=== PATIENT | male | born 1930 | race Caucasian/White ===

== ENCOUNTER 2016-04-18 13:59 | Inpatient (IN) ==
[2016-04-18] MEDS ORDERED: IPRATROPIUM/ALBUTEROL 3 ML AMPUL.NEB NEB ONE ×2 (14:18→16:43)
--- NOTE | 2016-04-18 14:41 | Emergency Department Note ---
General Adult HPI - General Chief complaint: Shortness of Breath/Dyspnea Stated complaint: Back pain, low O2 sats Time Seen by Provider: 04/18/16 14:35 Source: EMS Mode of arrival: EMS Limitations: no limitations, language barrier - History of Present Illness HPI Narrative: This patient has following couple times today has low back pain and has had a cough recently. - Related Data Home Medications Medication Instructions Recorded Confirmed Acetaminophen [Tylenol] 650 mg PO Q4HP PRN 04/18/16 04/18/16 Lisinopril [Zestril] 10 mg PO DAILY 04/18/16 04/18/16 Oxybutynin Chloride [Ditropan] 5 mg PO BID 04/18/16 04/18/16 Allergies Allergy/AdvReac Type Severity Reaction Status Date / Time No Known Drug Allergies Allergy Verified 04/18/16 14:04 Review of Systems All systems ED: reviewed and negative except as stated. Past Medical History - Past Medical History Medical history: Reports: dementia, other (bladder problems) Surgical history ED: Reports: cataract, herniorrhaphy, orthopedic, other Psychiatric history: Reports: schizophrenia - Social History Alcohol use: Reports: None Physical Exam - General Limitations: no limitations, language barrier General appearance: alert - Head Head exam: atraumatic - Eye Eye exam: Present: normal appearance - ENT ENT exam: normal exam - Neck Neck exam: Present: normal inspection - Chest Chest inspection: Present: normal inspection - Respiratory Respiratory exam: Present: other (Rales right base) - Cardiovascular Cardiovascular exam: Present: regular rate, normal rhythm, normal heart sounds - Abdominal Exam Abdominal exam: Present: soft. Absent: distention, tenderness - Neurological Exam Neurological exam: Present: alert - Psychiatric Psychiatric exam: Present: normal affect - Skin Skin exam: Present: warm Course Vital Signs Temperature 99.6 F 04/18/16 14:00 Pulse Rate 109 H 04/18/16 14:00 Respiratory Rate 20 04/18/16 14:00 Blood Pressure 132/88 04/18/16 14:00 Pulse Oximetry (%) 90 04/18/16 14:00 Temperature 99.6 F 04/18/16 14:00 Pulse Rate 103 H 04/18/16 18:16 Respiratory Rate 33 H 04/18/16 18:16 Blood Pressure 98/62 04/18/16 18:16 Pulse Oximetry (%) 90 04/18/16 18:16 Medical Decision Making - Lab Data Lab results reviewed: Yes I reviewed the patient's lab results. Result diagrams: 04/18/16 14:21 04/18/16 14:21 Lab Results 04/18/16 04/18/16 04/18/16 Range/Units 14:21 14:21 14:35 WBC 14.8 H (4.5-11.0) K/mcL RBC 5.02 (4.50-5.90) M/mcL Hgb 14.9 (13.5-16.5) g/dL Hct 45.7 (41.0-55.0) % MCV 91.0 (80.0-100.0) fL MCH 29.7 (26.0-34.0) pg MCHC 32.6 (31.0-36.0) g/dL RDW 15.4 H (11.5-14.5) % Plt Count 272 (140-440) K/mcL MPV 7.5 (7.4-10.4) fL Gran % 91.1 H (38.0-78.0) % Lymph % (Auto) 1.5 L (15.5-49.0) % [place] % (Auto) 6.5 (1.0-9.0) % Eos % (Auto) 0.9 (0.0-7.0) % Baso % (Auto) 0 (0.0-2.0) % Gran # 13.4 H (1.8-8.0) K/mcL Lymph # 0.2 L (1.5-4.8) K/mcL [place] # 1.0 H (0.1-0.9) K/mcL Eos # 0.1 (0.0-0.7) K/mcL Baso # 0 (0.0-0.3) K/mcL VBG Lactic Acid 2.9 H (0.5-2.2) mmol/L Sodium 139 (133-145) mmol/L Potassium 5.0 (3.3-5.1) mmol/L Chloride 101 (96-108) mmol/L Carbon Dioxide 22 (22-30) mmol/L Anion Gap 16.0 (8-16) BUN 25 H (8-23) mg/dl Creatinine 1.3 H (0.7-1.2) mg/dl GFR Calculation 49 Glucose 193 H (70-105) mg/dL Calcium 8.9 (8.6-10.4) mg/dl Total Bilirubin 0.8 (0.0-1.0) mg/dL AST 22 (0-37) U/l ALT 21 (0-40) U/l Alkaline Phosphatase 154 H (39-117) U/L Total Protein 7.1 (5.9-8.4) gm/dL Albumin 3.8 (3.2-5.2) gm/dL Globulin 3.3 (2.2-3.7) gm/dL Albumin/Globulin Ratio 1.2 (1.0-2.3) Urine Color Urine Appearance Urine pH (5.0-9.0) Ur Specific [place] (1.000-1.035) Urine Protein (NEG) mg/dL Urine Glucose (UA) (NEG) mg/dL Urine Ketones (NEG) mg/dL Urine Occult Blood (<0.03) mg/dL Urine Nitrate (NEG) Urine Bilirubin (NEG) mg/dL Urine Urobilinogen (NEG) mg/dL Ur Leukocyte Esterase (NEG) /uL Ur Culture Indicated? 04/18/16 Range/Units 17:15 WBC (4.5-11.0) K/mcL RBC (4.50-5.90) M/mcL Hgb (13.5-16.5) g/dL Hct (41.0-55.0) % MCV (80.0-100.0) fL MCH (26.0-34.0) pg MCHC (31.0-36.0) g/dL RDW (11.5-14.5) % Plt Count (140-440) K/mcL MPV (7.4-10.4) fL Gran % (38.0-78.0) % Lymph % (Auto) (15.5-49.0) % [place] % (Auto) (1.0-9.0) % Eos % (Auto) (0.0-7.0) % Baso % (Auto) (0.0-2.0) % Gran # (1.8-8.0) K/mcL Lymph # (1.5-4.8) K/mcL [place] # (0.1-0.9) K/mcL Eos # (0.0-0.7) K/mcL Baso # (0.0-0.3) K/mcL VBG Lactic Acid (0.5-2.2) mmol/L Sodium (133-145) mmol/L Potassium (3.3-5.1) mmol/L Chloride (96-108) mmol/L Carbon Dioxide (22-30) mmol/L Anion Gap (8-16) BUN (8-23) mg/dl Creatinine (0.7-1.2) mg/dl GFR Calculation Glucose (70-105) mg/dL Calcium (8.6-10.4) mg/dl Total Bilirubin (0.0-1.0) mg/dL AST (0-37) U/l ALT (0-40) U/l Alkaline Phosphatase (39-117) U/L Total Protein (5.9-8.4) gm/dL Albumin (3.2-5.2) gm/dL Globulin (2.2-3.7) gm/dL Albumin/Globulin Ratio (1.0-2.3) Urine Color Yellow Urine Appearance Clear Urine pH 5.0 (5.0-9.0) Ur Specific [place] 1.017 (1.000-1.035) Urine Protein Neg (NEG) mg/dL Urine Glucose (UA) Negative (NEG) mg/dL Urine Ketones 5/tr A (NEG) mg/dL Urine Occult Blood Neg (<0.03) mg/dL Urine Nitrate Neg (NEG) Urine Bilirubin Neg (NEG) mg/dL Urine Urobilinogen Neg (NEG) mg/dL Ur Leukocyte Esterase Neg (NEG) /uL Ur Culture Indicated? No - Radiology Data Radiology results reviewed: Yes I reviewed the patient's radiology results. ( chest x-ray bilateral pneumonia) Disposition Clinical Impression: Community acquired pneumonia Disposition: Xfer As Inpt ([facility]) Condition: Good Referrals: Valente Wen DO [Primary Care Provider] - Time of Disposition: 18:27
[2016-04-18] MEDS ORDERED: LEVOFLOXACIN 500 MG/100 ML BAG IV ONE (14:42)
[2016-04-18 14:56] LABS: Basophils # (Auto) 0 K/mcL (0.0-0.3); Basophils % (Auto) 0 % (0.0-2.0); Eosinophils # (Auto) 0.1 K/mcL (0.0-0.7); Eosinophils % (Auto) 0.9 % (0.0-7.0); Granulocytes % (Auto) 91.1 % (38.0-78.0); Lymphocytes # (Auto) 0.2 K/mcL (1.5-4.8); Lymphocytes % (Auto) 1.5 % (15.5-49.0); Mean Corpuscular HGB Conc 32.6 g/dL (31.0-36.0); Mean Corpuscular Hemoglobin 29.7 pg (26.0-34.0); Monocytes % (Auto) 6.5 % (1.0-9.0); Platelet Count 272 K/mcL (140-440); RBC 5.02 M/mcL (4.50-5.90); Red Cell Distribution Width 15.4 % (11.5-14.5)
--- NOTE | 2016-04-18 14:56 | XRay Report ---
HISTORY: Reason for Exam:SOB FINDINGS: There are bilateral alveolar infiltrates. The greatest consolidation is located medially in the right upper lobe. There is milder involvement in both lower lobes. These are new finding since 02/21/13. No pleural effusion is detected. The heart size is upper limits of normal. The aorta is tortuous. Underlying adenopathy cannot be excluded. 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 IMPRESSION: Moderate bilateral pneumonia with the greatest involvement in the right upper lobe Interpreted and Authenticated by: Lalo Nichols 04/18/16
[2016-04-18 15:11] LABS: ALT/SGPT 21 U/l (0-40); Albumin 3.8 gm/dL (3.2-5.2); Albumin/Globulin Ratio 1.2 (1.0-2.3); Alkaline Phosphatase 154 U/L (39-117); Blood Urea Nitrogen 25 mg/dl (8-23)
[2016-04-18] MEDS ORDERED: ONDANSETRON 4 MG/2 ML VIAL IV ONE (15:24)
[2016-04-18 18:01] LABS: Appearance,Urine CLEAR; Bilirubin,Urine NEG (NEG); Color,Urine YELLOW; Glucose,Urine (UA) NEGATIVE (NEG); Leukocyte Esterase,Urine NEG /uL (NEG); Nitrate,Urine NEG (NEG); Protein,Urine NEG (NEG); Specific Gravity,Urine 1.017 (1.000-1.035); Urine Blood NEG mg/dL (<0.03); Urobilinogen,Urine NEG (NEG)
[2016-04-18] MEDS ORDERED: cefTRIAXone 1 GM in DEXTROSE 5% IN WATER 50 ML IV ONE (18:26)
--- NOTE | 2016-04-18 18:32 | XRay Report ---
HISTORY: Reason for Exam:trauma fell twice today and status post recent kyphoplasty FINDINGS: There is a mild biconcave anterior wedge compression fracture at L1. There is cement within this vertebra. There has been no further loss in height of this vertebra compared with the preoperative x-ray done on 01/09/16. No new fracture has developed. There is arthritis with small anterior spurs throughout the thoracic and lumbar spine. The largest spurs are at L5-S1. IMPRESSION: No new fracture Interpreted and Authenticated by: Lalo Nichols 04/18/16
[2016-04-18] MEDS ORDERED: BISACODYL 10 MG SUPP.RECT PR PRN ×2 (19:51→20:47)
[2016-04-18] MEDS ORDERED: FLEETS ADULT ENEMA PR PRN ×2 (19:51→20:47)
[2016-04-18] MEDS ORDERED: LORazepam 2 MG/ML VIAL IV PRN (19:51)
[2016-04-18] MEDS ORDERED: MAGNESIUM HYDROXIDE 30 ML ORAL.SUSP PO PRN ×2 (19:51→20:47)
[2016-04-18] MEDS ORDERED: VANCOMYCIN PER PHARMACY IV ONE ×2 (19:57→20:47)
[2016-04-18] MEDS ORDERED: VANCOMYCIN 1,500 MG in 0.9 % SODIUM CHLORIDE 500 ML IV ONE ×2 (19:57→20:47)
[2016-04-18] MEDS ORDERED: HALOPERIDOL LACTATE 5 MG/ML VIAL IV PRN ×2 (19:59→20:47)
[2016-04-18] MEDS ORDERED: DEXTROSE 5%-1/2NS 1,000 ML IV SCH ×2 (20:00→20:47)
--- NOTE | 2016-04-18 20:06 | Internal Med History&Physical ---
Medical - H&P: [facility] Patient information: Note initiated : 04/18/16 at 8:01 pm Service Date, if different from initiated Date: [] Patient: Derek Nuñez a 85 y/o M admitted on for Back Pain, Low O2 Sats. Chief Complaint: [] History of present illness: Mr. Nuñez is a 85 year old male with h/o dementia, scizhophrenia, HTN urinary incontinence. Presents to the ER from [facility] after falling x 2 The EMS was called to take patient to the ER for eval. On arrival the EMS noted that the patient was hypoxic and throught the way to the hosptial they found it difficult to maintain oxygen saturations. the patient was evaluated in the ER ,and was noted to have bilateral Pneumonia predominantly involving the right lobe. His lactate was elevated to 2.9, wbc elevated from baseline, and creat upto 1.3, he was needing 10L oxygen via mask to maintain oxygen status, which improved after giving duonebs. The patient did not provide any history due to mental status and hard of hearing. The paper work from the [facility] shows DNR status, I called the patients POA Ramu Farmer on [phone] and confirmed the DNR Status. I also updated him on the patients condition, explaining the severity of the illness and that he may not survive this admission if the infection does not turn around quickly. In the ER he has received soem fluids, IV levaquin and IV rocephin. I have added IV zosyn and Vancomycin and continued levaquin for hcap pna treatment. ROS unobtainable: due to mental status Medical - H&P: PMH Medical history: h/o HTN, Dementia, schizophrenia, urinary incontinence, chr back pain due to lumbar fracture. gait disturbance. Surgical history: not avaialble. Pertinent family history: no family history obtainable. Social history: lives in [facility]. Medical - H&P: Meds Home Medications Medication Instructions Recorded Confirmed Type Acetaminophen [Tylenol] 650 mg PO Q4HP PRN 04/18/16 04/18/16 History Lisinopril [Zestril] 10 mg PO DAILY 04/18/16 04/18/16 History Oxybutynin Chloride [Ditropan] 5 mg PO BID 04/18/16 04/18/16 History Allergies Allergy/AdvReac Type Severity Reaction Status Date / Time No Known Drug Allergies Allergy Verified 04/18/16 14:04 Medical - H&P: Exam - Constitutional Vitals: Temp Pulse Resp BP Pulse Ox 99.6 F 95 H 33 H 117/75 92 04/18/16 14:00 04/18/16 19:27 04/18/16 18:16 04/18/16 19:27 04/18/16 19:27 General appearance: moderate distress - Head Head exam: Present: atraumatic - Respiratory Additional comments: Air entry equal on both sides, flower basilar crackles mild no wheezing apparent. patient tachypenic, non cooperative with the exam. - Cardiovascular Additional comments: non cooperative with exam no gross murmurs heard. - GI/Abdominal Additional comments: non cooperative with exam - Neurological Exam Additional comments: awake, did not follow my commands. was trying to go back to sleep. Medical - H&P: Reslt - Labs CBC & Chem 7: 04/18/16 14:21 04/18/16 14:21 Labs: Short CBC 04/18/16 Range/Units 14:21 WBC 14.8 H (4.5-11.0) K/mcL Hgb 14.9 (13.5-16.5) g/dL Hct 45.7 (41.0-55.0) % Plt Count 272 (140-440) K/mcL BMP 04/18/16 14:21 Sodium 139 Potassium 5.0 Chloride 101 Carbon Dioxide 22 BUN 25 H Creatinine 1.3 H Glucose 193 H Calcium 8.9 Liver Function 04/18/16 Range/Units 14:21 Total Bilirubin 0.8 (0.0-1.0) mg/dL AST 22 (0-37) U/l ALT 21 (0-40) U/l Alkaline Phosphatase 154 H (39-117) U/L Albumin 3.8 (3.2-5.2) gm/dL Urine 04/18/16 Range/Units 17:15 Urine Color Yellow Urine Appearance Clear Urine pH 5.0 (5.0-9.0) Ur Specific [place] 1.017 (1.000-1.035) Urine Protein Neg (NEG) mg/dL Urine Glucose (UA) Negative (NEG) mg/dL Medical - H&P: A/P (1) HCAP (healthcare-associated pneumonia) Current visit: Yes Status: Acute NH Resident Treat with levaquin, zosyn and vancomycin. poor prognosis, (2) Severe sepsis Current visit: Yes Status: Acute Elevated lactate, wbc, tachypnea, hypoxia, worsening renal function borderline HTN. Patient not a good candiate for very aggresive fluid management given that he is DNR status, will try to provide hydration to avoid hypotension, GIven his non compliance it will be difficult even to place a central line as he is not cooperative. Giving excessive sedation can risk worsening respiratory and cardiac status. for now will work with peripheral access, POA aware of poor prognosis. (3) Dementia Current visit: Yes Status: Acute high risk of delirum ok to use low dose haldol to prevent aggressive behaviour and prevent removal of lines. no benzo due to tenous cardio resp status. (4) Acute respiratory failure with hypoxia Current visit: Yes Status: Acute presnetly on oxymask 10 L try to keep oxygen sat > 90
[2016-04-18] MEDS ORDERED: VANCOMYCIN 500 MG in 0.9 % SODIUM CHLORIDE 100 ML IV ONE (20:15)
[2016-04-18] MEDS ORDERED: LEVOFLOXACIN 250 MG/50 ML BAG IV ONE (20:15)
[2016-04-18] MEDS ORDERED: HEPARIN 5,000 UNIT/ML VIAL SQ SCH (21:00)
[2016-04-18] MEDS ORDERED: 0.9 % SODIUM CHLORIDE 10 ML SYRINGE IV SCH (22:00)
[2016-04-18] MEDS ORDERED: VANCOMYCIN 500 MG VIAL ONE (22:13)
[2016-04-18] MEDS: 0.9 % SODIUM CHLORIDE 10 ML SYRINGE IV SCH (22:16)
[2016-04-18] MEDS: IPRATROPIUM/ALBUTEROL 3 ML AMPUL.NEB NEB SCH (22:49)
[2016-04-18] MEDS ORDERED: IPRATROPIUM/ALBUTEROL 3 ML AMPUL.NEB NEB SCH (23:00)
[2016-04-18] MEDS: HEPARIN 5,000 UNIT/ML VIAL SQ SCH (23:43)
[2016-04-19] MEDS ORDERED: PIPERACILLIN SODIUM/TAZOBACTAM 3.375 GM in DEXTROSE 5% IN WATER 50 ML IV SCH
[2016-04-19] MEDS: PIPERACILLIN SODIUM/TAZOBACTAM 3.375 GM in DEXTROSE 5% IN WATER 50 ML IV SCH ×4 (00:45→17:50)
[2016-04-19] MEDS ORDERED: PIPERACILLIN SODIUM/TAZOBACTAM 3.375 GM VIAL IV ONE ×2 (00:45→06:08)
[2016-04-19] MEDS: IPRATROPIUM/ALBUTEROL 3 ML AMPUL.NEB NEB SCH ×6 (03:06→23:14)
[2016-04-19] MEDS: 0.9 % SODIUM CHLORIDE 10 ML SYRINGE IV SCH ×3 (06:13→21:15)
[2016-04-19] MEDS ORDERED: DEXTROSE 5%-1/2NS 1,000 ML IV SCH (07:15)
[2016-04-19 07:38] LABS: Mean Cell Volume 90.2 fL (80.0-100.0); Mean Corpuscular HGB Conc 32.7 g/dL (31.0-36.0); Mean Corpuscular Hemoglobin 29.5 pg (26.0-34.0); Platelet Count 192 K/mcL (140-440); RBC 4.51 M/mcL (4.50-5.90)
[2016-04-19 08:42] LABS: Band Neutrophils % 1 % (0-10); Eosinophils % (Manual) 2 % (0-7); Lymphocytes % 2 % (15-49); Monocytes % (Manual) 9 % (1-9); Platelet Estimate NORMAL (NORMAL); RBC Morphology NORMAL (NORMAL); Segmented Neutrophils % 86 % (38-78)
[2016-04-19] MEDS: ACETAMINOPHEN 325 MG TABLET PO PRN ×2 (08:50→13:40)
[2016-04-19] MEDS: HEPARIN 5,000 UNIT/ML VIAL SQ SCH ×2 (08:51→21:30)
[2016-04-19 09:19] LABS: ALT/SGPT 17 U/l (0-40); Albumin 3.1 gm/dL (3.2-5.2); Albumin/Globulin Ratio 0.9 (1.0-2.3); Alkaline Phosphatase 117 U/L (39-117); Bilirubin,Direct < 0.2 mg/dL (0.0-0.3); Blood Urea Nitrogen 23 mg/dl (8-23); Gamma Glutamyl Transpeptidase 27 U/L (8-61); Magnesium 1.9 mg/dL (1.6-2.5); Phosphorous 3.1 mg/dL (2.7-4.5); Uric Acid 4.7 mg/dL (2.5-8.0)
[2016-04-19] MEDS ORDERED: 0.9 % SODIUM CHLORIDE 500 ML IV ONE ×3 (12:39→22:53)
[2016-04-19] MEDS: DEXTROSE 5%-1/2NS 1,000 ML IV SCH ×2 (13:39→22:03)
[2016-04-19] MEDS ORDERED: VANCOMYCIN 1,000 MG in 0.9 % SODIUM CHLORIDE 250 ML IV SCH (14:00)
--- NOTE | 2016-04-19 14:43 | Internal Med Progress Note ---
Medical - PN: Subj Patient information: Note initiated : 04/19/16 at 2:40 pm Service Date, if different from initiated Date: [] Patient: Derek Nuñez 85 y/o M admitted on 04/18/16 for Back Pain, Low O2 Sats/Pneumonia, Sepsis. Chief Complaint: [] Interval history: The patient seen examined in PCU the patient this AM was doing better, he did not have any new complaints, but is a poor communicator due to his mental status. Overnight events noted. He has complained about pain and he seems to be less agitated when given tylenol. I will add low dose hydrocodone to his regime to see if this helps to keep him comfortable. his breathing seems better, he is still tachypenic, and but is able to maintain his oxygenation well, his bp is stable, HR is stable, he has been febrile Cultures so far have been negative. ROS not obtainable due to poor mental condition. - Constitutional Vitals: Vital Signs Temp Pulse Resp BP Pulse Ox 99.6 F 77 34 H 111/67 98 04/19/16 14:00 04/19/16 11:17 04/19/16 14:00 04/19/16 14:00 04/19/16 14:00 Period Temp Pulse Resp BP Sys/Griffith Pulse Ox Last 24 Hr 99.6 F-100.4 F 73-90 18-41 98-131/59-86 89-98 Intake and Output 04/19/16 04/19/16 04/19/16 05:59 13:59 21:59 Intake Total 100 / 100 1981 168 / 168 Output Total 492 / 492 180 / 180 Balance -392 / -392 1801 / 1802 148 / 148 Weight 151 lb 6.4 oz 151 lb 6.4 oz Patient Weight 04/20/16 05:59 Weight 151 lb 6.4 oz Intake & Output: Intake & Output 04/19/16 04/19/16 04/19/16 05:59 13:59 21:59 Intake Total 100 / 100 1981 168 / 168 Output Total 492 / 492 180 / 180 Balance -392 / -392 180 / 1802 148 / 148 Weight 151 lb 6.4 oz 151 lb 6.4 oz Intake: IV 100 / 100 1762 / 1762 48 / 48 Sodium Chloride 0.9% 500 500 / 500 ml @ Wide Open IV [facility] Rx#:[id number] Dextrose 5%-1/2Ns IV 1162 / 1162 48 / 48 Solution 1,000 ml @ 100 mls/hr IV .Q10H [facility] Rx#: [id number] Dextrose 5% in Water 50 50 / 50 100 / 100 ml @ 100 mls/hr IV Q6H [facility] with Zosyn 3.375 gm Rx#:[id number] Oral 220 / 220 120 / 120 Output: Urine Catheter Amount 492 / 492 180 / 180 20 / 20 Other: Meal Breakfast Lunch Percent of Meal Consumed 100% 25% Feeding Ability Assist with Tray Set Up Assist with Tray Set Up - Head Head exam: Present: atraumatic, normal inspection - Eye Eye exam: Absent: conjunctival injection, scleral icterus - Respiratory Respiratory exam: Absent: respiratory distress, wheezes Additional comments: Right mid and lower lobe crackles, no active wheezing patient tachypenic, but RR improves when he is resting. - Cardiovascular Cardiovascular exam: Present: normal rate and rhythm, +S1, +S2 - GI/Abdominal GI/Abdominal exam: Present: normal bowel sounds, soft. Absent: guarding, hernia , rigid, tenderness - Extremities Exam Extremities exam: Present: Foot pink and warm. Absent: pedal edema - Neurological Exam Additional comments: can be easily aroused follows commands moving all extremities Hard of hearing hence not able to comphrehend much, also has h/o dementia - Psychiatric Additional comments: Intermittently agitated, but overall has been cam and redirectable. - Skin Skin exam: Absent: rash, urticaria Medical - PN: Obj Da - Labs CBC & Chem 7: 04/19/16 06:10 04/19/16 06:10 Labs: Abnormal Lab Results 04/19/16 04/19/16 06:10 06:10 Hgb 13.3 L Hct 40.7 L RDW 15.0 H Seg Neutrophils % 86 H Lymphocytes % 2 L Potassium 5.2 H Carbon Dioxide 20 L Anion Gap 17.0 H Creatinine 1.3 H Glucose 144 H Calcium 8.2 L Lactate Dehydrogenase 504 H Albumin 3.1 L Albumin/Globulin Ratio 0.9 L Meds: Medications Acetaminophen (Tylenol) 650 mg PO Q4-6HP PRN PRN Reason: PAIN/FEVER > 101 Last Admin: 04/19/16 13:40 Dose: 650 mg Acetaminophen/Hydrocodone Bitart ([place] 5/325mg) 1 tab PO Q4-6HP PRN PRN Reason: Pain Albuterol/Ipratropium (Duoneb) 3 ml NEB Q4HRT [facility] Last Admin: 04/19/16 10:59 Dose: 3 ml Bisacodyl (Dulcolax) 10 mg AK Q2-3DAYS PRN PRN Reason: Constipation Haloperidol Lactate (Haldol) 2 mg IV Q4HP PRN PRN Reason: ANXIETY/SEDATION Heparin Sodium (Porcine) (Heparin) 5,000 unit SQ Q12 [facility] Last Admin: 04/19/16 08:51 Dose: 5,000 unit Levofloxacin (Levaquin) 750 mg in 150 mls @ 150 mls/hr IV Q48H [facility] Vancomycin HCl 1,500 mg/ (Sodium Chloride) 500 mls @ 333.3 mls/hr IV DAILY [facility] Piperacillin Sod/Tazobactam (Sod 3.375 gm/ Dextrose) 50 mls @ 100 mls/hr IV Q6H [facility] Last Infusion: 04/19/16 12:40 Dose: Infused Vancomycin HCl 1,000 mg/ (Sodium Chloride) 250 mls @ 250 mls/hr IV 1400 [facility] Stop: 04/19/16 14:59 Last Admin: 04/19/16 14:09 Dose: 250 mls/hr Dextrose/Sodium Chloride (Dextrose 5%-1/2ns Iv Solution) 1,000 mls @ 100 mls/ hr IV .Q10H [facility] Last Infusion: 04/19/16 14:08 Dose: 0 mls/hr Magnesium Hydroxide (Milk Of Magnesia) 30 ml PO DAILYP PRN PRN Reason: Constipation Sodium Biphosphate/Sodium Phosphate (Fleets Adult) 1 dose AK Q3-4DAYS PRN PRN Reason: Constipation Sodium Chloride (Saline Flush) 10 ml IV Q8 [facility] Last Admin: 04/19/16 14:10 Dose: Not Given Medical - PN: A/P - Time Spent With Patient Total time spent is greater than 50% in coordination of care (as documented) at patient's floor/unit and/or counseling patient: (1) HCAP (healthcare-associated pneumonia) Status: Acute Assessment and plan: The patient is still requiring oxygen On IV levaquin, Zosyn and vancomycin continue same for now. tachpenic still but has stable oxygen requirements. Current Visit: Yes (2) Severe sepsis Status: Acute Assessment and plan: WBC count improving, patient still febrile BP still labile, but improving with single 500cc bolus, patient is on maintaince IV fluids at 100cc/ hr Given oxygen requirements and stable BP, DNR status, aggresive fluid resusitation was not performed He does not seem a candidate who will tolerate bipap. overall however the sepsis seems to be improving. Current Visit: Yes (3) Dementia Status: Acute Assessment and plan: high risk for delirum stable at this time prn haldol ordered Current Visit: Yes (4) Acute respiratory failure with hypoxia Status: Acute Assessment and plan: on oxygen, continue same for now. Current Visit: Yes Medical - PN: Qual - VTE Deep Vein Thrombosis/Pulmonary Embolism Present on Admission: No
[2016-04-19] MEDS ORDERED: LEVOFLOXACIN 750 MG/150 ML BAG IV SCH (20:00)
[2016-04-20] MEDS: PIPERACILLIN SODIUM/TAZOBACTAM 3.375 GM in DEXTROSE 5% IN WATER 50 ML IV SCH ×4 (00:23→17:23)
[2016-04-20] MEDS ORDERED: 0.9 % SODIUM CHLORIDE 500 ML IV ONE (01:20)
[2016-04-20] MEDS: IPRATROPIUM/ALBUTEROL 3 ML AMPUL.NEB NEB SCH ×7 (02:10→22:58)
[2016-04-20] MEDS: HYDROcodone/APAP 5/325MG TABLET PO PRN ×4 (02:10→23:59)
[2016-04-20] MEDS: DEXTROSE 5%-1/2NS 1,000 ML IV SCH ×3 (04:41→14:30)
[2016-04-20] MEDS: 0.9 % SODIUM CHLORIDE 10 ML SYRINGE IV SCH ×3 (05:24→21:49)
[2016-04-20 06:00] LABS: Basophils # (Auto) 0 K/mcL (0.0-0.3); Basophils % (Auto) 0.3 % (0.0-2.0); Eosinophils # (Auto) 0.3 K/mcL (0.0-0.7); Eosinophils % (Auto) 3.6 % (0.0-7.0); Granulocytes % (Auto) 79.8 % (38.0-78.0); Lymphocytes # (Auto) 0.5 K/mcL (1.5-4.8); Mean Cell Volume 91.7 fL (80.0-100.0); Mean Corpuscular Hemoglobin 30.2 pg (26.0-34.0); Monocytes # (Auto) 0.8 K/mcL (0.1-0.9); Monocytes % (Auto) 10.3 % (1.0-9.0); Platelet Count 160 K/mcL (140-440); RBC 3.86 M/mcL (4.50-5.90); Red Cell Distribution Width 15.6 % (11.5-14.5)
[2016-04-20 06:24] LABS: ALT/SGPT 14 U/l (0-40); Albumin 2.8 gm/dL (3.2-5.2); Albumin/Globulin Ratio 1.2 (1.0-2.3); Alkaline Phosphatase 105 U/L (39-117); Bilirubin,Direct < 0.2 mg/dL (0.0-0.3); Blood Urea Nitrogen 23 mg/dl (8-23); Gamma Glutamyl Transpeptidase 31 U/L (8-61); Magnesium 1.7 mg/dL (1.6-2.5); Phosphorous 2.4 mg/dL (2.7-4.5); Uric Acid 3.1 mg/dL (2.5-8.0)
[2016-04-20] MEDS ORDERED: VANCOMYCIN 1,500 MG in 0.9 % SODIUM CHLORIDE 500 ML IV SCH (09:00)
[2016-04-20] MEDS: HEPARIN 5,000 UNIT/ML VIAL SQ SCH (09:43)
[2016-04-20] MEDS ORDERED: LEVOFLOXACIN 750 MG/150 ML BAG IV SCH ×2 (10:00→12:00)
[2016-04-20] MEDS ORDERED: HALOPERIDOL LACTATE 5 MG/ML VIAL IV PRN (10:54)
[2016-04-20] MEDS ORDERED: ACETAMINOPHEN 325 MG TABLET PO PRN (10:54)
[2016-04-20] MEDS ORDERED: BISACODYL 10 MG SUPP.RECT PR PRN (10:54)
[2016-04-20] MEDS ORDERED: FLEETS ADULT ENEMA PR PRN (10:54)
--- NOTE | 2016-04-20 15:27 | Internal Med Progress Note ---
Medical - PN: Subj Patient information: Note initiated : 04/20/16 at 3:25 pm Service Date, if different from initiated Date: [] Patient: Derek Nuñez 85 y/o M admitted on 04/18/16 for Back Pain, Low O2 Sats/Pneumonia, Sepsis. Chief Complaint: [] Interval history: The patient seen examined, no acute events noted The patietn had low urine output overnight, which responded to fluid boluses. he is othwerwise stable, and improving. but his progonisis is still guarded. he is able to maintain oxygenation on 2 L at this time, still tachypenic Able to tolerate po well his blood pressure has remained stable Unable to communicate very well with the patient due to his mental condition and poor hearing, - Constitutional Vitals: Vital Signs Temp Pulse Resp BP Pulse Ox 98.8 F 80 24 94/66 96 04/20/16 12:00 04/20/16 14:48 04/20/16 14:48 04/20/16 12:00 04/20/16 12:00 Period Temp Pulse Resp BP Sys/Griffith Pulse Ox Last 24 Hr 98.8 F-100.5 F 60-92 20-42 94-129/49-71 91-99 Intake and Output 04/20/16 04/20/16 04/20/16 05:59 13:59 21:59 Intake Total 2414 / 2414 1812 / 1812 Output Total 216 / 216 350 / 350 Balance 2198 / 2198 1462 / 1462 Intake & Output: Intake & Output 04/20/16 04/20/16 04/20/16 05:59 13:59 21:59 Intake Total 2414 / 2414 1812 / 1812 Output Total 216 / 216 350 / 350 Balance 2198 / 2198 1462 / 1462 Intake: IV 2294 / 2294 1072 / 1072 Sodium Chloride 0.9% 500 1500 / 1500 ml @ Wide Open IV BOLUS ONE Rx#:[id number] Dextrose 5%-1/2Ns IV 694 / 694 522 / 522 Solution 1,000 ml @ 100 mls/hr IV .Q10H [facility] Rx#: [id number] Dextrose 5% in Water 50 100 / 100 50 / 50 ml @ 100 mls/hr IV Q6 [facility] with Zosyn 3.375 gm Rx#: [id number] Sodium Chloride 0.9% 500 500 / 500 ml @ 333.3 mls/hr IV DAILY [facility] with Vancomycin 1,500 mg Rx#:[id number] Oral 120 / 120 740 / 740 Output: Urine Catheter Amount 216 / 216 350 / 350 Other: Meal Nourishment/Supplement Lunch Percent of Meal Consumed 50% 50% Feeding Ability Total Assistance Needs Supervision General appearance: no acute distress, thin, no cooperative - Head Head exam: Present: atraumatic, normal inspection - Eye Eye exam: Absent: periorbital swelling, periorbital tenderness - ENT ENT exam: Present: mucous membranes dry - Respiratory Additional comments: bibasilar crackles, rt > left, air entry equal on both sides, no wheezing or stridor noted. - Cardiovascular Cardiovascular exam: Present: normal rate and rhythm, +S1, +S2 - GI/Abdominal GI/Abdominal exam: Present: normal bowel sounds, soft. Absent: firm, rigid - Neurological Exam Additional comments: Intermittent agitation, somtiems follows commands moving all extremities. - Psychiatric Psychiatric exam: Present: agitated. Absent: normal affect, normal mood Medical - PN: Obj Da - Labs CBC & Chem 7: 04/20/16 04:17 04/20/16 04:17 Labs: Abnormal Lab Results 04/20/16 04/20/16 04/19/16 04:17 04:17 06:10 RBC 3.86 L Hgb 11.7 L Hct 35.4 L RDW 15.6 H Gran % 79.8 H Lymph % (Auto) 6.0 L [place] % (Auto) 10.3 H Lymph # 0.5 L Seg Neutrophils % Lymphocytes % Potassium 5.2 H Carbon Dioxide 20 L 20 L Anion Gap 17.0 H Creatinine 1.3 H Glucose 132 H 144 H Calcium 7.4 L 8.2 L Phosphorus 2.4 L Lactate Dehydrogenase 504 H Total Protein 5.2 L Albumin 2.8 L 3.1 L Albumin/Globulin Ratio 0.9 L 04/19/16 06:10 RBC Hgb 13.3 L Hct 40.7 L RDW 15.0 H Gran % Lymph % (Auto) [place] % (Auto) Lymph # Seg Neutrophils % 86 H Lymphocytes % 2 L Potassium Carbon Dioxide Anion Gap Creatinine Glucose Calcium Phosphorus Lactate Dehydrogenase Total Protein Albumin Albumin/Globulin Ratio Meds: Medications Acetaminophen (Tylenol) 650 mg PO Q4-6HP PRN PRN Reason: PAIN/FEVER > 101 Acetaminophen/Hydrocodone Bitart ([place] 5/325mg) 1 tab PO Q4-6HP PRN PRN Reason: Pain Albuterol/Ipratropium (Duoneb) 3 ml NEB Q4HRT [facility] Last Admin: 04/20/16 14:48 Dose: 3 ml Bisacodyl (Dulcolax) 10 mg NE Q2-3DAYS PRN PRN Reason: Constipation Haloperidol Lactate (Haldol) 2 mg IV Q4HP PRN PRN Reason: ANXIETY/SEDATION Heparin Sodium (Porcine) (Heparin) 5,000 unit SQ Q12 [facility] Dextrose/Sodium Chloride (Dextrose 5%-1/2ns Iv Solution) 1,000 mls @ 100 mls/ hr IV .Q10H [facility] Levofloxacin (Levaquin) 750 mg in 150 mls @ 150 mls/hr IV Q48H [facility] Piperacillin Sod/Tazobactam (Sod 3.375 gm/ Dextrose) 50 mls @ 100 mls/hr IV Q6 [facility] Last Infusion: 04/20/16 12:35 Dose: Infused Vancomycin HCl 1,500 mg/ (Sodium Chloride) 500 mls @ 333.3 mls/hr IV DAILY [facility] Magnesium Hydroxide (Milk Of Magnesia) 30 ml PO DAILYP PRN PRN Reason: Constipation Sodium Biphosphate/Sodium Phosphate (Fleets Adult) 1 dose NE Q3-4DAYS PRN PRN Reason: Constipation Sodium Chloride (Saline Flush) 10 ml IV Q8 [facility] Medical - PN: A/P - Time Spent With Patient Total time spent is greater than 50% in coordination of care (as documented) at patient's floor/unit and/or counseling patient: (1) HCAP (healthcare-associated pneumonia) Status: Acute Assessment and plan: The patient is still requiring oxygen, but on 2 L now. On IV levaquin, Zosyn and vancomycin continue same for now. tachpenic intermittently, but stable for now guarded prognosis. Current Visit: Yes (2) Severe sepsis Status: Acute Assessment and plan: WBC count improving, labs better bp stable, sepsis resolved. Current Visit: Yes (3) Dementia Status: Acute Assessment and plan: high risk for delirum stable at this time prn haldol ordered Current Visit: Yes (4) Acute respiratory failure with hypoxia Status: Acute Assessment and plan: on oxygen, continue same for now. now only needs 2L NC Current Visit: Yes Medical - PN: Qual - VTE Deep Vein Thrombosis/Pulmonary Embolism Present on Admission: No
[2016-04-20] MEDS ORDERED: HEPARIN 5,000 UNIT/ML VIAL SQ SCH (21:00)
[2016-04-21] MEDS: PIPERACILLIN SODIUM/TAZOBACTAM 3.375 GM in DEXTROSE 5% IN WATER 50 ML IV SCH ×5 (00:27→23:26)
[2016-04-21] MEDS: DEXTROSE 5%-1/2NS 1,000 ML IV SCH ×3 (01:25→15:55)
[2016-04-21] MEDS: IPRATROPIUM/ALBUTEROL 3 ML AMPUL.NEB NEB SCH ×6 (03:58→23:27)
[2016-04-21 07:05] LABS: Basophils # (Auto) 0 K/mcL (0.0-0.3); Basophils % (Auto) 0.3 % (0.0-2.0); Eosinophils # (Auto) 0.5 K/mcL (0.0-0.7); Eosinophils % (Auto) 6.5 % (0.0-7.0); Granulocytes % (Auto) 69.1 % (38.0-78.0); Lymphocytes # (Auto) 0.7 K/mcL (1.5-4.8); Lymphocytes % (Auto) 9.6 % (15.5-49.0); Mean Cell Volume 91.5 fL (80.0-100.0); Mean Corpuscular HGB Conc 33.1 g/dL (31.0-36.0); Mean Corpuscular Hemoglobin 30.3 pg (26.0-34.0); Monocytes # (Auto) 1.1 K/mcL (0.1-0.9); Monocytes % (Auto) 14.5 % (1.0-9.0); Platelet Count 137 K/mcL (140-440); RBC 3.78 M/mcL (4.50-5.90); Red Cell Distribution Width 15.7 % (11.5-14.5)
[2016-04-21 07:37] LABS: ALT/SGPT 17 U/l (0-40); Albumin 2.8 gm/dL (3.2-5.2); Albumin/Globulin Ratio 1.3 (1.0-2.3); Alkaline Phosphatase 103 U/L (39-117); Bilirubin,Direct 0.2 mg/dL (0.0-0.3); Blood Urea Nitrogen 18 mg/dl (8-23); Gamma Glutamyl Transpeptidase 50 U/L (8-61); Magnesium 1.8 mg/dL (1.6-2.5); Phosphorous 2.4 mg/dL (2.7-4.5); Uric Acid 2.6 mg/dL (2.5-8.0)
[2016-04-21] MEDS: VANCOMYCIN 1,500 MG in 0.9 % SODIUM CHLORIDE 500 ML IV SCH (09:17)
[2016-04-21] MEDS: FONDAPARINUX SODIUM 2.5 MG/0.5 ML SYRINGE SQ SCH (09:17)
[2016-04-21] MEDS: 0.9 % SODIUM CHLORIDE 10 ML SYRINGE IV SCH ×3 (09:18→20:58)
--- NOTE | 2016-04-21 11:49 | Internal Med Progress Note ---
Medical - PN: Subj Patient information: Note initiated : 04/21/16 at 11:47 am Service Date, if different from initiated Date: [] Patient: Derek Nuñez 85 y/o M admitted on 04/18/16 for Back Pain, Low O2 Sats/Pneumonia, Sepsis. Chief Complaint: [] Interval history: The patient seen examined, no acute overnight events, h/o intermittent delirium and shouting at night, but overall stable Maintainig good urine output, tolerating po well He still needs oxygen supplementation, and max assist for transferes. he will need to be transferred to [place] for further eval he has some [place] benefits and can only be discharged at a [place] facility. The patient is poor historian, but did not endorse any complaints this AM - Constitutional Vitals: Vital Signs Temp Pulse Resp BP Pulse Ox 99.4 F 86 29 H 131/71 91 04/21/16 07:58 04/21/16 07:58 04/21/16 07:58 04/21/16 07:58 04/21/16 07:58 Period Temp Pulse Resp BP Sys/Griffith Pulse Ox Last 24 Hr 98.8 F-100.0 F 68-87 24-42 94-150/58-83 91-96 Intake and Output 04/20/16 04/21/16 04/21/16 21:59 05:59 13:59 Intake Total 488 / 488 1172 / 1172 430 / 430 Output Total 360 / 360 990 / 990 750 / 750 Balance 128 / 128 182 / 182 -320 / -320 Weight 165 lb 12.8 oz Intake & Output: Intake & Output 04/20/16 04/21/16 04/21/16 21:59 05:59 13:59 Intake Total 488 / 488 1172 / 1172 430 / 430 Output Total 360 / 360 990 / 990 750 / 750 Balance 128 / 128 182 / 182 -320 / -320 Weight 165 lb 12.8 oz Intake: IV 488 / 488 762 / 762 Dextrose 5%-1/2Ns IV 288 / 288 712 / 712 Solution 1,000 ml @ 100 mls/hr IV .Q10H [facility] Rx#: [id number] Dextrose 5% in Water 50 50 / 50 50 / 50 ml @ 100 mls/hr IV Q6 [facility] with Zosyn 3.375 gm Rx#: [id number] Oral 410 / 410 430 / 430 Output: Urine Catheter Amount 360 / 360 990 / 990 750 / 750 Other: Meal snack Nourishment/Supplement Percent of Meal Consumed 5 Feeding Ability Total Assistance General appearance: average body habitus, cooperative, no acute distress - Head Head exam: Present: atraumatic, normal inspection - Neck Neck exam: Present: normal inspection - Respiratory Respiratory exam: Present: normal respiratory exam. Absent: accessory muscle use, respiratory distress (right basilar crackles ) - Cardiovascular Cardiovascular exam: Present: normal rate and rhythm, +S1, +S2 - GI/Abdominal GI/Abdominal exam: Present: normal bowel sounds, soft. Absent: guarding, rigid , tenderness - Neurological Exam Additional comments: arousable follows commands moving all extremities. - Psychiatric Psychiatric exam: Absent: agitated Medical - PN: Obj Da - Labs CBC & Chem 7: 04/21/16 04:22 04/21/16 04:22 Labs: Abnormal Lab Results 04/21/16 04/21/16 04/20/16 04:22 04:22 04:17 RBC 3.78 L Hgb 11.4 L Hct 34.6 L RDW 15.7 H Plt Count 137 L Gran % Lymph % (Auto) 9.6 L [place] % (Auto) 14.5 H Lymph # 0.7 L [place] # 1.1 H Seg Neutrophils % Lymphocytes % Potassium Carbon Dioxide 20 L Anion Gap Creatinine Glucose 117 H 132 H Calcium 7.6 L 7.4 L Phosphorus 2.4 L 2.4 L Lactate Dehydrogenase Total Protein 4.9 L 5.2 L Albumin 2.8 L 2.8 L Globulin 2.1 L Albumin/Globulin Ratio 04/20/16 04/19/16 04/19/16 04:17 06:10 06:10 RBC 3.86 L Hgb 11.7 L 13.3 L Hct 35.4 L 40.7 L RDW 15.6 H 15.0 H Plt Count Gran % 79.8 H Lymph % (Auto) 6.0 L [place] % (Auto) 10.3 H Lymph # 0.5 L [place] # Seg Neutrophils % 86 H Lymphocytes % 2 L Potassium 5.2 H Carbon Dioxide 20 L Anion Gap 17.0 H Creatinine 1.3 H Glucose 144 H Calcium 8.2 L Phosphorus Lactate Dehydrogenase 504 H Total Protein Albumin 3.1 L Globulin Albumin/Globulin Ratio 0.9 L Meds: Medications Acetaminophen (Tylenol) 650 mg PO Q4-6HP PRN PRN Reason: PAIN/FEVER > 101 Acetaminophen/Hydrocodone Bitart ([place] 5/325mg) 1 tab PO Q4-6HP PRN PRN Reason: Pain Last Admin: 04/20/16 23:59 Dose: 1 tab Albuterol/Ipratropium (Duoneb) 3 ml NEB Q4HRT [facility] Last Admin: 04/21/16 11:16 Dose: 3 ml Bisacodyl (Dulcolax) 10 mg [place] Q2-3DAYS PRN PRN Reason: Constipation Fondaparinux (Arixtra) 2.5 mg SQ DAILY [facility] Last Admin: 04/21/16 09:17 Dose: 2.5 mg Haloperidol Lactate (Haldol) 2 mg IV Q4HP PRN PRN Reason: ANXIETY/SEDATION Dextrose/Sodium Chloride (Dextrose 5%-1/2ns Iv Solution) 1,000 mls @ 100 mls/ hr IV .Q10H [facility] Last Admin: 04/21/16 09:18 Dose: Not Given Levofloxacin (Levaquin) 750 mg in 150 mls @ 150 mls/hr IV Q48H [facility] Piperacillin Sod/Tazobactam (Sod 3.375 gm/ Dextrose) 50 mls @ 100 mls/hr IV Q6 [facility] Last Admin: 04/21/16 05:56 Dose: 100 mls/hr Vancomycin HCl 1,500 mg/ (Sodium Chloride) 500 mls @ 333.3 mls/hr IV DAILY [facility] Last Admin: 04/21/16 09:17 Dose: 333.3 mls/hr Magnesium Hydroxide (Milk Of Magnesia) 30 ml PO DAILYP PRN PRN Reason: Constipation Sodium Biphosphate/Sodium Phosphate (Fleets Adult) 1 dose [place] Q3-4DAYS PRN PRN Reason: Constipation Sodium Chloride (Saline Flush) 10 ml IV Q8 [facility] Last Admin: 04/21/16 09:18 Dose: Not Given Medical - PN: A/P - Time Spent With Patient Total time spent is greater than 50% in coordination of care (as documented) at patient's floor/unit and/or counseling patient: (1) HCAP (healthcare-associated pneumonia) Status: Acute Assessment and plan: The patient is still requiring oxygen, but on 2 L now. On IV levaquin, Zosyn and vancomycin, D D4/7 of antibiotics continue same for now. tachpenic intermittently, but stable for now guarded prognosis. Current Visit: Yes (2) Severe sepsis Status: Acute Assessment and plan: resolved. Current Visit: Yes (3) Dementia Status: Acute Assessment and plan: high risk for delirum stable at this time prn haldol ordered Current Visit: Yes (4) Acute respiratory failure with hypoxia Status: Acute Assessment and plan: on oxygen, continue same for now. now only needs 2L NC Current Visit: Yes Medical - PN: Qual - VTE Deep Vein Thrombosis/Pulmonary Embolism Present on Admission: No
[2016-04-21] MEDS: HYDROcodone/APAP 5/325MG TABLET PO PRN ×2 (13:15→21:06)
[2016-04-21] MEDS: MAGNESIUM HYDROXIDE 30 ML ORAL.SUSP PO PRN (14:48)
[2016-04-22] MEDS: DEXTROSE 5%-1/2NS 1,000 ML IV SCH (02:50)
[2016-04-22] MEDS: IPRATROPIUM/ALBUTEROL 3 ML AMPUL.NEB NEB SCH ×6 (03:20→22:27)
[2016-04-22] MEDS: PIPERACILLIN SODIUM/TAZOBACTAM 3.375 GM in DEXTROSE 5% IN WATER 50 ML IV SCH ×3 (05:20→17:50)
[2016-04-22] MEDS: 0.9 % SODIUM CHLORIDE 10 ML SYRINGE IV SCH ×4 (05:25→22:49)
[2016-04-22] MEDS: HYDROcodone/APAP 5/325MG TABLET PO PRN ×2 (07:21→19:43)
[2016-04-22 07:27] LABS: Basophils # (Auto) 0 K/mcL (0.0-0.3); Basophils % (Auto) 0.4 % (0.0-2.0); Eosinophils # (Auto) 0.5 K/mcL (0.0-0.7); Eosinophils % (Auto) 7.5 % (0.0-7.0); Granulocytes % (Auto) 67.8 % (38.0-78.0); Lymphocytes # (Auto) 0.7 K/mcL (1.5-4.8); Lymphocytes % (Auto) 10.9 % (15.5-49.0); Mean Cell Volume 91.9 fL (80.0-100.0); Mean Corpuscular HGB Conc 32.6 g/dL (31.0-36.0); Monocytes # (Auto) 0.9 K/mcL (0.1-0.9); Monocytes % (Auto) 13.4 % (1.0-9.0); Platelet Count 150 K/mcL (140-440); RBC 3.79 M/mcL (4.50-5.90); Red Cell Distribution Width 15.5 % (11.5-14.5)
[2016-04-22 07:38] LABS: ALT/SGPT 16 U/l (0-40); Albumin/Globulin Ratio 1.5 (1.0-2.3); Alkaline Phosphatase 102 U/L (39-117); Bilirubin,Direct 0.2 mg/dL (0.0-0.3); Blood Urea Nitrogen 14 mg/dl (8-23); Gamma Glutamyl Transpeptidase 57 U/L (8-61); Magnesium 1.9 mg/dL (1.6-2.5); Uric Acid 2.5 mg/dL (2.5-8.0)
[2016-04-22] MEDS: MAGNESIUM HYDROXIDE 30 ML ORAL.SUSP PO PRN (08:14)
[2016-04-22] MEDS ORDERED: FUROSEMIDE 20 MG/2 ML VIAL IV SCH (09:15)
[2016-04-22] MEDS: FONDAPARINUX SODIUM 2.5 MG/0.5 ML SYRINGE SQ SCH (09:45)
--- NOTE | 2016-04-22 09:49 | Internal Med Progress Note ---
Medical - PN: Subj Patient information: Note initiated : 04/22/16 at 9:44 am Service Date, if different from initiated Date: [] Patient: Derek Nuñez a 85 y/o M admitted on 04/18/16 for Back Pain, Low O2 Sats/Pneumonia, Sepsis. Chief Complaint: [] Interval history: 04/18-Mr. Nuñez is a 85 year old male with h/o dementia, scizhophrenia, HTN urinary incontinence. Presents to the ER from [facility] after falling x 2 The EMS was called to take patient to the ER for eval. On arrival the EMS noted that the patient was hypoxic and throught the way to the hosptial they found it difficult to maintain oxygen saturations. the patient was evaluated in the ER ,and was noted to have bilateral Pneumonia predominantly involving the right lobe. His lactate was elevated to 2.9, wbc elevated from baseline, and creat upto 1.3, he was needing 10L oxygen via mask to maintain oxygen status, which improved after giving duonebs. The patient did not provide any history due to mental status and hard of hearing. 04/19- 04/21- patient clinically improving. white count down from 14.8-7.7. lactic acid trending down from 2.9-1.7. potassium down from 5.2-4.7. creatinine improving. stabilizing hemodynamics. patient experienced episodes of delirium and agitation. await SNF transfer to [place] once pneumonia clinically resolved. on antibiotic coverage including Levaquin and Zosyn and vancomycin. improving respiratory failure. oxygen requirement down to 2 L /- patient seen and examined in room. intermittent bouts of agitation and yelling. However clinically stable. White count normalized. T-Max 99.7. no overnight nausea vomiting shortness of breath diarrhea. possible transfer to medical floor under watch bed in light of dementia aggravated delirium. await SNF transfer. - Constitutional Vitals: Vital Signs Temp Pulse Resp BP Pulse Ox 99.3 F 77 24 124/79 94 04/22/16 04:00 04/22/16 08:30 04/22/16 04:00 04/22/16 04:00 04/22/16 04:00 Period Temp Pulse Resp BP Sys/Griffith Pulse Ox Last 24 Hr 99.3 F-100.1 F 70-77 - 124-139/75-84 94-99 Intake and Output 04/21/16 04/22/16 04/22/16 21:59 05:59 13:59 Intake Total 1050 / 1050 1100 / 1100 Output Total 250 / 250 1125 / 1125 800 / 800 Balance 800 / 800 -25 / -25 -800 / -800 Weight 167 lb 6.4 oz Intake & Output: Intake & Output 04/21/16 04/22/16 04/22/16 21:59 05:59 13:59 Intake Total 1050 / 1050 1100 / 1100 Output Total 250 / 250 1125 / 1125 800 / 800 Balance 800 / 800 -25 / -25 -800 / -800 Weight 167 lb 6.4 oz Intake: IV 50 / 50 1100 / 1100 Dextrose 5%-1/2Ns IV 1000 / 1000 Solution 1,000 ml @ 100 mls/hr IV .Q10H [facility] Rx#: [id number] Dextrose 5% in Water 50 50 / 50 100 / 100 ml @ 100 mls/hr IV Q6 [facility] with Zosyn 3.375 gm Rx#: [id number] Oral 1000 / 1000 Output: Urine Catheter Amount 250 / 250 1125 / 1125 800 / 800 Other: Meal Dinner Percent of Meal Consumed 100% Feeding Ability Needs Supervision # Bowel Movements 0 General appearance: no acute distress Medical - PN: Obj Da - Labs CBC & Chem 7: 04/22/16 04:19 04/22/16 04:19 Labs: Abnormal Lab Results 04/22/16 04/22/16 04/22/16 07:10 04:19 04:19 RBC 3.79 L Hgb 11.4 L Hct 34.9 L RDW 15.5 H Plt Count Gran % Lymph % (Auto) 10.9 L [place] % (Auto) 13.4 H Eos % (Auto) 7.5 H Lymph # 0.7 L [place] # Carbon Dioxide Glucose 116 H Calcium 7.7 L Phosphorus 2.0 L Total Protein 5.0 L Albumin 3.0 L Globulin 2.0 L Vancomycin Trough 16.9 H 04/21/16 04/21/16 04/20/16 04:22 04:22 04:17 RBC 3.78 L Hgb 11.4 L Hct 34.6 L RDW 15.7 H Plt Count 137 L Gran % Lymph % (Auto) 9.6 L [place] % (Auto) 14.5 H Eos % (Auto) Lymph # 0.7 L [place] # 1.1 H Carbon Dioxide 20 L Glucose 117 H 132 H Calcium 7.6 L 7.4 L Phosphorus 2.4 L 2.4 L Total Protein 4.9 L 5.2 L Albumin 2.8 L 2.8 L Globulin 2.1 L Vancomycin Trough 04/20/16 04:17 RBC 3.86 L Hgb 11.7 L Hct 35.4 L RDW 15.6 H Plt Count Gran % 79.8 H Lymph % (Auto) 6.0 L [place] % (Auto) 10.3 H Eos % (Auto) Lymph # 0.5 L [place] # Carbon Dioxide Glucose Calcium Phosphorus Total Protein Albumin Globulin Vancomycin Trough Meds: Medications Acetaminophen (Tylenol) 650 mg PO Q4-6HP PRN PRN Reason: PAIN/FEVER > 101 Acetaminophen/Hydrocodone Bitart ([place] 5/325mg) 1 tab PO Q4-6HP PRN PRN Reason: Pain Last Admin: 04/22/16 07:21 Dose: 1 tab Albuterol/Ipratropium (Duoneb) 3 ml NEB Q4HRT [facility] Last Admin: 04/22/16 08:30 Dose: 3 ml Bisacodyl (Dulcolax) 10 mg [place] Q2-3DAYS PRN PRN Reason: Constipation Fondaparinux (Arixtra) 2.5 mg SQ DAILY [facility] Last Admin: 04/21/16 09:17 Dose: 2.5 mg Furosemide (Lasix) 20 mg IV BIDD [facility] Haloperidol Lactate (Haldol) 2 mg IV Q4HP PRN PRN Reason: ANXIETY/SEDATION Levofloxacin (Levaquin) 750 mg in 150 mls @ 150 mls/hr IV Q48H [facility] Piperacillin Sod/Tazobactam (Sod 3.375 gm/ Dextrose) 50 mls @ 100 mls/hr IV Q6 [facility] Last Infusion: 04/22/16 05:51 Dose: Infused Vancomycin HCl 1,500 mg/ (Sodium Chloride) 500 mls @ 333.3 mls/hr IV DAILY [facility] Last Infusion: 04/21/16 12:04 Dose: Infused Magnesium Hydroxide (Milk Of Magnesia) 30 ml PO DAILYP PRN PRN Reason: Constipation Last Admin: 04/22/16 08:14 Dose: 30 ml Sodium Biphosphate/Sodium Phosphate (Fleets Adult) 1 dose [place] Q3-4DAYS PRN PRN Reason: Constipation Sodium Chloride (Saline Flush) 10 ml IV Q8 [facility] Last Admin: 04/22/16 05:25 Dose: Not Given Medical - PN: A/P - Time Spent With Patient Total time spent is greater than 50% in coordination of care (as documented) at patient's floor/unit and/or counseling patient: 25 - 35 minutes (1) Community acquired pneumonia Status: Acute Assessment and plan: * healthcare associated pneumonia-responding to antibiotic coverage. continue additional 3 days antibiotic coverage * Hypoxic respiratory failure clinically improved * Severe sepsis acute organ dysfunction clinically improving along with normalizing creatinine * generalized edema secondary to fluid resuscitation. Start Lasix * Dementia with delirium exacerbated by infection. Gradually improving * hypertension-lisinopril on hold in light of elevated creatinine and severe sepsis. Can be started on discharge * DVT prophylaxis on Arixtra plan * Lasix 20 mg * Continue antibiotic coverage * Delirium watch/frequent reorientation/bright lights/avoid opioids/ antihistamine/anticholinergics/ sedatives Current Visit: Yes Medical - PN: Qual - VTE Deep Vein Thrombosis/Pulmonary Embolism Present on Admission: No
[2016-04-22] MEDS ORDERED: LEVOFLOXACIN 750 MG/150 ML BAG IV SCH (10:00)
[2016-04-22] MEDS: VANCOMYCIN 1,500 MG in 0.9 % SODIUM CHLORIDE 500 ML IV SCH (12:34)
[2016-04-22] MEDS ORDERED: BISACODYL 10 MG SUPP.RECT PR PRN (13:00)
[2016-04-22] MEDS ORDERED: ACETAMINOPHEN 325 MG TABLET PO PRN (13:00)
[2016-04-22] MEDS ORDERED: OLANZapine 2.5 MG TABLET PO PRN (13:00)
[2016-04-22] MEDS ORDERED: MAGNESIUM HYDROXIDE 30 ML ORAL.SUSP PO PRN (13:00)
[2016-04-22] MEDS ORDERED: FLEETS ADULT ENEMA PR PRN (13:00)
--- NOTE | 2016-04-22 15:27 | XRay Report ---
HISTORY: Reason for Exam:Interval Change-b/l pna FINDINGS: There are persistent bilateral alveolar infiltrates with the greatest involvement in the right upper lobe. There has been mild improvement in the left lung base. However, the infiltrate above the right diaphragm has enlarged. The heart is mildly enlarged but magnified by portable technique. IMPRESSION: Bilateral pneumonia with improvement on the left side but increasing consolidation in the right lower lobe Interpreted and Authenticated by: Lalo Nichols 04/22/16
[2016-04-23] MEDS: PIPERACILLIN SODIUM/TAZOBACTAM 3.375 GM in DEXTROSE 5% IN WATER 50 ML IV SCH ×4 (00:05→17:31)
[2016-04-23] MEDS: IPRATROPIUM/ALBUTEROL 3 ML AMPUL.NEB NEB SCH ×6 (02:29→23:06)
[2016-04-23] MEDS: 0.9 % SODIUM CHLORIDE 10 ML SYRINGE IV SCH ×3 (05:19→22:37)
[2016-04-23 07:56] LABS: Basophils # (Auto) 0 K/mcL (0.0-0.3); Basophils % (Auto) 0.4 % (0.0-2.0); Eosinophils # (Auto) 0.5 K/mcL (0.0-0.7); Eosinophils % (Auto) 6.6 % (0.0-7.0); Granulocytes % (Auto) 76.2 % (38.0-78.0); Lymphocytes # (Auto) 0.6 K/mcL (1.5-4.8); Lymphocytes % (Auto) 6.7 % (15.5-49.0); Mean Cell Volume 91.7 fL (80.0-100.0); Mean Corpuscular HGB Conc 32.9 g/dL (31.0-36.0); Mean Corpuscular Hemoglobin 30.1 pg (26.0-34.0); Monocytes # (Auto) 0.8 K/mcL (0.1-0.9); Monocytes % (Auto) 10.1 % (1.0-9.0); Platelet Count 168 K/mcL (140-440); RBC 3.91 M/mcL (4.50-5.90); Red Cell Distribution Width 15.6 % (11.5-14.5)
[2016-04-23 09:08] LABS: ALT/SGPT 17 U/l (0-40); Albumin 2.9 gm/dL (3.2-5.2); Albumin/Globulin Ratio 1.3 (1.0-2.3); Alkaline Phosphatase 102 U/L (39-117); Bilirubin,Direct 0.2 mg/dL (0.0-0.3); Blood Urea Nitrogen 12 mg/dl (8-23); Gamma Glutamyl Transpeptidase 56 U/L (8-61); Phosphorous 2.5 mg/dL (2.7-4.5)
[2016-04-23] MEDS: DOCUSATE SODIUM 100 MG CAPSULE PO SCH ×2 (09:50→22:36)
[2016-04-23] MEDS: FONDAPARINUX SODIUM 2.5 MG/0.5 ML SYRINGE SQ SCH ×2 (09:50→11:16)
[2016-04-23] MEDS: VANCOMYCIN 1,500 MG in 0.9 % SODIUM CHLORIDE 500 ML IV SCH (09:50)
--- NOTE | 2016-04-23 12:02 | Internal Med Progress Note ---
Medical - PN: Subj Patient information: Note initiated : 04/23/16 at 12:01 pm Service Date, if different from initiated Date: [] Patient: Derek Nuñez a 85 y/o M admitted on 04/18/16 for Back Pain, Low O2 Sats/Pneumonia, Sepsis. Chief Complaint: [] Interval history: 04/18-Mr. Nuñez is a 85 year old male with h/o dementia, scizhophrenia, HTN urinary incontinence. Presents to the ER from [facility] after falling x 2 The EMS was called to take patient to the ER for eval. On arrival the EMS noted that the patient was hypoxic and throught the way to the hosptial they found it difficult to maintain oxygen saturations. the patient was evaluated in the ER ,and was noted to have bilateral Pneumonia predominantly involving the right lobe. His lactate was elevated to 2.9, wbc elevated from baseline, and creat upto 1.3, he was needing 10L oxygen via mask to maintain oxygen status, which improved after giving duonebs. The patient did not provide any history due to mental status and hard of hearing. 04/19- 04/21- patient clinically improving. white count down from 14.8-7.7. lactic acid trending down from 2.9-1.7. potassium down from 5.2-4.7. creatinine improving. stabilizing hemodynamics. patient experienced episodes of delirium and agitation. await SNF transfer to [place] once pneumonia clinically resolved. on antibiotic coverage including Levaquin and Zosyn and vancomycin. improving respiratory failure. oxygen requirement down to 2 L /- patient seen and examined in room. intermittent bouts of agitation and yelling. However clinically stable. White count normalized. T-Max 99.7. no overnight nausea vomiting shortness of breath diarrhea. possible transfer to medical floor under watch bed in light of dementia aggravated delirium. await SNF transfer. 04/23- pt mentation at baseline and more cooperative, tolearting diet and PT. No overnight fever or chills.No concerns per staff, await SNF transfer - Constitutional Vitals: Vital Signs Temp Pulse Resp BP Pulse Ox 98.9 F 67 12 147/92 91 04/23/16 06:25 04/23/16 11:09 04/23/16 11:09 04/23/16 06:25 04/23/16 11:10 Period Temp Pulse Resp BP Sys/Griffith Pulse Ox Last 24 Hr 98.1 F-98.9 F 60-82 12-40 121-152/67-92 91-93 Intake and Output 04/22/16 04/23/16 04/23/16 21:59 05:59 13:59 Intake Total 50 / 50 400 / 400 Output Total 900 / 900 825 / 825 Balance -850 / -850 -425 / -425 Weight 168 lb Intake & Output: Intake & Output 04/22/16 04/23/16 04/23/16 21:59 05:59 13:59 Intake Total 50 / 50 400 / 400 Output Total 900 / 900 825 / 825 Balance -850 / -850 -425 / -425 Weight 168 lb Intake: IV 50 / 50 100 / 100 Dextrose 5% in Water 50 50 / 50 100 / 100 ml @ 100 mls/hr IV Q6 [facility] with Zosyn 3.375 gm Rx#: [id number] Oral 300 / 300 Output: Urine Catheter Amount 900 / 900 825 / 825 Other: Meal Nourishment/Supplement Percent of Meal Consumed Refused # Bowel Movements 1 1 1 General appearance: cooperative, no acute distress Exam: intermittently confused Non labored breathing No pallor Improved lymphedema Medical - PN: Obj Da - Labs CBC & Chem 7: 04/23/16 05:58 04/23/16 05:58 Labs: Abnormal Lab Results 04/23/16 04/23/16 04/22/16 05:58 05:58 07:10 RBC 3.91 L Hgb 11.8 L Hct 35.8 L RDW 15.6 H Plt Count Lymph % (Auto) 6.7 [place] % (Auto) 10.1 H Eos % (Auto) Lymph # 0.6 L [place] # Glucose Calcium 8.2 L Phosphorus 2.5 L Total Protein 5.2 L Albumin 2.9 L Globulin Vancomycin Trough 16.9 H 04/22/16 04/22/16 04/21/16 04:19 04:19 04:22 RBC 3.79 L Hgb 11.4 L Hct 34.9 L RDW 15.5 H Plt Count Lymph % (Auto) 10.9 L [place] % (Auto) 13.4 H Eos % (Auto) 7.5 H Lymph # 0.7 L [place] # Glucose 116 H 117 H Calcium 7.7 L 7.6 L Phosphorus 2.0 L 2.4 L Total Protein 5.0 L 4.9 L Albumin 3.0 L 2.8 L Globulin 2.0 L 2.1 L Vancomycin Trough 04/21/16 04:22 RBC 3.78 L Hgb 11.4 L Hct 34.6 L RDW 15.7 H Plt Count 137 L Lymph % (Auto) 9.6 L [place] % (Auto) 14.5 H Eos % (Auto) Lymph # 0.7 L [place] # 1.1 H Glucose Calcium Phosphorus Total Protein Albumin Globulin Vancomycin Trough Meds: Medications Acetaminophen (Tylenol) 650 mg PO Q4-6HP PRN PRN Reason: PAIN/FEVER > 101 Last Admin: 04/23/16 02:23 Dose: 650 mg Acetaminophen/Hydrocodone Bitart ([place] 5/325mg) 1 tab PO Q4-6HP PRN PRN Reason: Pain Last Admin: 04/22/16 19:43 Dose: 1 tab Albuterol/Ipratropium (Duoneb) 3 ml NEB Q4HRT [facility] Last Admin: 04/23/16 10:56 Dose: 3 ml Bisacodyl (Dulcolax) 10 mg [place] Q2-3DAYS PRN PRN Reason: Constipation Docusate Sodium (Colace) 100 mg PO BID [facility] Last Admin: 04/23/16 09:50 Dose: Not Given Fondaparinux (Arixtra) 2.5 mg SQ DAILY [facility] Last Admin: 04/23/16 11:16 Dose: 2.5 mg Levofloxacin (Levaquin) 750 mg in 150 mls @ 100 mls/hr IV Q48H [facility] Piperacillin Sod/Tazobactam (Sod 3.375 gm/ Dextrose) 50 mls @ 100 mls/hr IV Q6 [facility] Last Infusion: 04/23/16 05:48 Dose: Infused Vancomycin HCl 1,500 mg/ (Sodium Chloride) 500 mls @ 333.3 mls/hr IV DAILY [facility] Last Admin: 04/23/16 09:50 Dose: 333.3 mls/hr Magnesium Hydroxide (Milk Of Magnesia) 30 ml PO DAILYP PRN PRN Reason: Constipation Olanzapine (Zyprexa) 2.5 mg PO HSP PRN PRN Reason: [place] Sodium Biphosphate/Sodium Phosphate (Fleets Adult) 1 dose [place] Q3-4DAYS PRN PRN Reason: Constipation Sodium Chloride (Saline Flush) 10 ml IV Q8 [facility] Last Admin: 04/23/16 05:19 Dose: Not Given Medical - PN: A/P - Time Spent With Patient Total time spent is greater than 50% in coordination of care (as documented) at patient's floor/unit and/or counseling patient: 15 - 24 minutes (1) Community acquired pneumonia Status: Acute Assessment and plan: * Healthcare associated pneumonia-responding to antibiotic coverage. continue additional 2 days Abx * Hypoxic respiratory failure 2/2 above. Now on room air * Severe sepsis with acute organ dysfunction- Nearly resolved * Generalized edema secondary to fluid resuscitation. resolved with diuresis * Dementia with delirium exacerbated by infection. now near baseline * Hypertension-restart home meds * DVT prophylaxis on Arixtra plan * Continue antibiotic coverage * Delirium watch/frequent reorientation/bright lights * PT/OT * SNF transfer * Abx coverage for additional 2 days Current Visit: Yes Medical - PN: Qual - VTE Deep Vein Thrombosis/Pulmonary Embolism Present on Admission: No
[2016-04-23] MEDS ORDERED: 0.9 % SODIUM CHLORIDE 500 ML IV SCH (16:30)
[2016-04-23] MEDS: OXYBUTYNIN CHLORIDE 5 MG TABLET PO SCH ×2 (18:38→22:37)
[2016-04-23] MEDS: HYDROcodone/APAP 5/325MG TABLET PO PRN (18:38)
[2016-04-24] MEDS: PIPERACILLIN SODIUM/TAZOBACTAM 3.375 GM in DEXTROSE 5% IN WATER 50 ML IV SCH ×3 (00:40→12:08)
[2016-04-24] MEDS: IPRATROPIUM/ALBUTEROL 3 ML AMPUL.NEB NEB SCH ×3 (03:48→11:00)
[2016-04-24 05:32] LABS: Basophils # (Auto) 0 K/mcL (0.0-0.3); Basophils % (Auto) 0.6 % (0.0-2.0); Eosinophils # (Auto) 0.6 K/mcL (0.0-0.7); Eosinophils % (Auto) 7.6 % (0.0-7.0); Granulocytes % (Auto) 69.9 % (38.0-78.0); Lymphocytes # (Auto) 0.8 K/mcL (1.5-4.8); Lymphocytes % (Auto) 9.9 % (15.5-49.0); Mean Cell Volume 91.1 fL (80.0-100.0); Platelet Count 181 K/mcL (140-440); RBC 3.78 M/mcL (4.50-5.90); Red Cell Distribution Width 15.6 % (11.5-14.5)
[2016-04-24] MEDS: 0.9 % SODIUM CHLORIDE 10 ML SYRINGE IV SCH ×3 (05:40→13:19)
[2016-04-24 06:11] LABS: ALT/SGPT 16 U/l (0-40); Albumin 2.9 gm/dL (3.2-5.2); Albumin/Globulin Ratio 1.1 (1.0-2.3); Alkaline Phosphatase 105 U/L (39-117); Bilirubin,Direct < 0.2 mg/dL (0.0-0.3); Blood Urea Nitrogen 15 mg/dl (8-23); Gamma Glutamyl Transpeptidase 53 U/L (8-61); Magnesium 2.1 mg/dL (1.6-2.5); Uric Acid 3.2 mg/dL (2.5-8.0)
[2016-04-24] MEDS: FONDAPARINUX SODIUM 2.5 MG/0.5 ML SYRINGE SQ SCH (09:31)
[2016-04-24] MEDS: OXYBUTYNIN CHLORIDE 5 MG TABLET PO SCH (09:32)
[2016-04-24] MEDS: VANCOMYCIN 1,500 MG in 0.9 % SODIUM CHLORIDE 500 ML IV SCH (09:32)
[2016-04-24] MEDS: DOCUSATE SODIUM 100 MG CAPSULE PO SCH (09:32)
[2016-04-24] MEDS ORDERED: LEVOFLOXACIN 750 MG/150 ML BAG IV SCH (10:00)
--- NOTE | 2016-04-24 14:23 | Discharge Summary ---
Medical - DS: Prov Patient information: Note initiated : 04/24/16 at 2:07 pm Service Date, if different from initiated Date: [] Patient: Derek Nuñez 85 y/o M admitted on 04/18/16 for Back Pain, Low O2 Sats/Pneumonia, Sepsis. Chief Complaint: [] Date of admission: 04/18/16 20:30 Discharge date: 04/24/16 Primary care physician: [dr. Valente Wen, phone [phone]] Admitting clinician: Samira Dickinson Attending physician on discharge: Candice Perera Medical - DS: Meds - Discharge Medications Prescriptions: Albuterol Sulfate [Ventolin] 2.5 mg NEB Q4HP PRN #1 ampul.neb PRN Reason: Shortness Of Breath Or Wheezing Amoxicillin/Potassium Clav [Augmentin] 875 mg PO Q12H #8 tablet HYDROcodone/APAP 5/325MG [[place] 5/325Mg] 1 tab PO Q4-6HP PRN #30 tablet PRN Reason: Pain Levofloxacin [Levaquin] 500 mg PO DAILY #4 tablet Active and Home Medications: Home Medications Acetaminophen [Tylenol] 650 mg PO Q4HP PRN 04/18/16 [History Confirmed 04/18/16 Last Taken 04/18/16] Lisinopril [Zestril] 10 mg PO DAILY 04/18/16 [History Confirmed 04/18/16 Last Taken 04/18/16] Oxybutynin Chloride [Ditropan] 5 mg PO BID 04/18/16 [History Confirmed 04/18/16 Last Taken 04/18/16] Active Medications Acetaminophen (Tylenol) 650 mg PO Q4-6HP PRN PRN Reason: PAIN/FEVER > 101 Last Admin: 04/23/16 02:23 Dose: 650 mg Acetaminophen/Hydrocodone Bitart ([place] 5/325mg) 1 tab PO Q4-6HP PRN PRN Reason: Pain Last Admin: 04/23/16 18:38 Dose: 1 tab Albuterol/Ipratropium (Duoneb) 3 ml NEB Q4HRT [facility] Last Admin: 04/24/16 11:00 Dose: 3 ml Bisacodyl (Dulcolax) 10 mg OR Q2-3DAYS PRN PRN Reason: Constipation Docusate Sodium (Colace) 100 mg PO BID [facility] Last Admin: 04/24/16 09:32 Dose: Not Given Fondaparinux (Arixtra) 2.5 mg SQ DAILY [facility] Last Admin: 04/24/16 09:31 Dose: 2.5 mg Levofloxacin (Levaquin) 750 mg in 150 mls @ 100 mls/hr IV Q48H [facility] Last Admin: 04/24/16 13:19 Dose: 100 mls/hr Piperacillin Sod/Tazobactam (Sod 3.375 gm/ Dextrose) 50 mls @ 100 mls/hr IV Q6 [facility] Last Admin: 04/24/16 12:08 Dose: 100 mls/hr Vancomycin HCl 1,500 mg/ (Sodium Chloride) 500 mls @ 333.3 mls/hr IV DAILY [facility] Last Admin: 04/24/16 09:32 Dose: 333 mls/hr Sodium Chloride (Sodium Chloride 0.9%) 500 mls @ 20 mls/hr IV .Q24H [facility] Last Admin: 04/23/16 17:43 Dose: 20 mls/hr Magnesium Hydroxide (Milk Of Magnesia) 30 ml PO DAILYP PRN PRN Reason: Constipation Olanzapine (Zyprexa) 2.5 mg PO HSP PRN PRN Reason: Delerium Last Admin: 04/23/16 22:42 Dose: 2.5 mg Oxybutynin Chloride (Ditropan) 5 mg PO BID [facility] Last Admin: 04/24/16 09:32 Dose: 5 mg Sodium Biphosphate/Sodium Phosphate (Fleets Adult) 1 dose OR Q3-4DAYS PRN PRN Reason: Constipation Sodium Chloride (Saline Flush) 10 ml IV Q8 [facility] Last Admin: 04/24/16 13:19 Dose: Not Given Medical - DS: Hosp Hospital course: Mr. Nuñez is a 85 year old male 04/18-Mr. Nuñez is a 85 year old male with h/o dementia, scizhophrenia, HTN urinary incontinence. Presents to the ER from [facility] after falling x 2 The EMS was called to take patient to the ER for eval. On arrival the EMS noted that the patient was hypoxic and hroughout on the way to the Hospital they found it difficult to maintain oxygen saturations. the patient was evaluated in the ER ,and was noted to have bilateral Pneumonia predominantly involving the right lobe. His lactate was elevated to 2.9, wbc elevated from baseline, and creat upto 1.3, he was needing 10L oxygen via mask to maintain oxygen status, which improved after giving duonebs. The patient did not provide any history due to mental status and hard of hearing. 04/19- 04/21- patient clinically improving. white count down from 14.8-7.7. lactic acid trending down from 2.9-1.7. potassium down from 5.2-4.7. creatinine improving. stabilizing hemodynamics. patient experienced episodes of delirium and agitation. await SNF transfer to [place] once pneumonia clinically resolved. on antibiotic coverage including Levaquin and Zosyn and vancomycin. improving respiratory failure. oxygen requirement down to 2 L 04/22- patient seen and examined in room. intermittent bouts of agitation and yelling. However clinically stable. White count normalized. T-Max 99.7. no overnight nausea vomiting shortness of breath diarrhea. possible transfer to medical floor under watch bed in light of dementia aggravated delirium. await SNF transfer. 04/23- pt mentation at baseline and more cooperative, tolearting diet and PT. No overnight fever or chills.No concerns per staff, await SNF transfer April 24, 2016: today, the patient is calm and alert. He continues to be extremely hard of hearing, but denies pain, shortness of breath. He continues to have a mild cough. Vital signs have been stable overnight. #1. . The nurses to check a postvoid residual during the night, which was fine. However this afternoon when they checked,postvoid residual was greater than 500. He was encouraged to try again, but may need periodicin and out catheterization. He has been maintained on oxybutynin, which may be aggravating his urinary retention, so I will hold that today. Ideally, he should have postvoid residuals checked at least twice a day for the next couple of days to be sure this is resolving. clinically, his pneumonia is nearly resolved. I will change him over to oral Augmentin and Levaquin, to complete a 10 day course. We can continue with when necessary albuterol as well.Next paragraph #2.Hypoxic respiratory failure, due to bilateral pneumonia. He has responded well to treatment for healthcare associated pneumonia, with IV vancomycin, Zosyn, Levaquin. he is now oxygenating well on room air. Sepsis has resolved. -transition to oral Augmentin plus Levaquin for another 4 days and then discontinue. It might be reasonable to check a follow-up chest x-ray in 1-2 weeks. Continue when necessary albuterol. #3. Edema due to IV fluids. Resolving. #4. Dementia with acute delirium. This has improved.ontinue when necessary olanzapine. #5. Hypertension. Resume home meds. #6. DVT prophylaxis, Arixtra was used This can be discontinued as he is becoming more ambulatory. He still requires cues with walking, so should continue with physical therapy for rehabilitation.he would benefit from bothhis therapy and occupational therapy. - Time Spent with Patient Total time spent providing and/or coordinating discharge services: Greater than 30 minutes Medical - DS: Exam - Constitutional Vitals: Vital Signs Temp Pulse Pulse Resp BP Pulse Ox 04/24/16 11:44 97.3 F L 78 18 134/75 96 04/24/16 11:15 92 04/24/16 11:14 72 92 04/24/16 11:12 72 12 04/24/16 07:36 65 12 90 04/24/16 07:32 68 12 04/24/16 06:45 97.3 F L 68 18 146/84 04/24/16 03:53 98.7 F 57 L 18 127/83 94 04/23/16 23:32 97.8 F 73 24 126/56 90 04/23/16 23:13 79 24 04/23/16 19:42 90 22 04/23/16 19:38 91 04/23/16 18:55 97.7 F 100 H 24 155/84 93 04/23/16 18:48 93 04/23/16 15:55 152/89 04/23/16 15:53 97.9 F 91 H 36 H 92 04/23/16 14:47 67 22 Intake and Output 04/24/16 04/24/16 04/24/16 05:59 13:59 21:59 Intake Total 150 / 150 530 / 530 360 / 360 Output Total 205 / 205 Balance 147 / 147 325 / 325 360 / 360 Intake: IV 50 / 50 50 / 50 Dextrose 5% in Water 50 50 / 50 50 / 50 ml @ 100 mls/hr IV Q6 [facility] with Zosyn 3.375 gm Rx#: [id number] Oral 100 / 100 480 / 480 360 / 360 Output: Void Amount 200 / 200 # of times incontinent of 3 / 3 5 / 5 urine Other: Meal Breakfast Percent of Meal Consumed 100% # Voids 1 Weight 166 lb 8 oz Patient Weight 04/25/16 05:59 Weight 166 lb 8 oz Additional comments: on exam, he is calm and cooperative this morning, but is continuing very heard of hearing. The nurses feel he still has some pain related to his compression fracture, for which she receives hydrocodone. Neck is supple without obvious lymphadenopathy or JVD. Cardiac exam shows regular rate and rhythm. Lung exam shows a few crackles at the right base, but is otherwise clear. Abdomen is soft and nontender. Extremities show no significant edema. Neurologic:The patient does have a known baseline dementia. This morning he is fairly alert and oriented. Medical - DS: Data Labs on day of discharge: Labs from last 24 hours 04/24/16 04/24/16 04:05 04:05 WBC 8.1 RBC 3.78 L Hgb 11.4 L Hct 34.4 L MCV 91.1 MCH 30.0 MCHC 33.0 RDW 15.6 H Plt Count 181 MPV 7.7 Gran % 69.9 Lymph % (Auto) 9.9 L [place] % (Auto) 12.0 H Eos % (Auto) 7.6 H Baso % (Auto) 0.6 Gran # 5.6 Lymph # 0.8 L [place] # 1.0 H Eos # 0.6 Baso # 0 Sodium 140 Potassium 3.9 Chloride 105 Carbon Dioxide 26 Anion Gap 9.0 BUN 15 Creatinine 1.2 GFR Calculation 54 Glucose 96 Uric Acid 3.2 Calcium 8.3 L Phosphorus 3.0 Magnesium 2.1 Total Bilirubin 0.5 Direct Bilirubin < 0.2 GGT 53 AST 18 ALT 16 Alkaline Phosphatase 105 Lactate Dehydrogenase 253 H Total Protein 5.6 L Albumin 2.9 L Globulin 2.7 Albumin/Globulin Ratio 1.1 Triglycerides 60 Heparin-dependent platelet antibody studies are pending. Blood cultures were negative. MRSA screen was negative. hest x-ray from April 22, 2016: Bilateral pneumonia with improvement on the left side but slight increase on the right lower lobe. Lumbar spine x-ray shows a mildanterior wedge compression fracture at L1 and cement within the vertebrae. This is similar to January 09, 2016. 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 Medical - DS: A/P - Patient/Caregiver Discharge Instructions Activity: as per physical therapy Diet: Regular Diet, Cardiac - Follow up Plan Follow up with: Valente Wen DO [Primary Care Provider] - Disposition: Xfer SNF Prognosis: Fair Rehab Potential: Fair I certify that the patient requires SNF services: Yes Overall status at discharge: patient is progressing back to baseline Medical - DS: Qual - VTE Deep Vein Thrombosis/Pulmonary Embolism Present on Admission: No
[2016-04-24] MEDS: HYDROcodone/APAP 5/325MG TABLET PO PRN (15:31)
== END 2016-04-24 15:35 | DRG 871 ==
LOC: ED 13:59 → ICU 20:30 → SUATTDRO 20:30 → ICU 20:40 → MEDSUR 04-22 13:57
PROVIDERS: ADMIT Internal Medicine; ATTEND Internal Medicine